=== PATIENT | male | born 1955 | race Caucasian/White ===

== ENCOUNTER 2019-02-28 05:15 | Day surgery (SDC) | payer OTHER ==
[~2019-02-28] VITALS: Ht 167.6 cm; Wt 67.9 kg
[~2019-02-28 05:15] MED LIST: BAYER CHEWABLE81 MG PO; CLARITIN 10 MG10 MG PO; DULCOLAX STOOL100 MG PO; HALDOL5 MG/ML IM; HYDROCHLOROTHIA25 MG PO; IBUPROFEN600 MG PO; MULTIPLE VITAMI1 TA1 PO; NIFEDIPINE ER30 MG PO; PRAVACHOL20 MG PO; PRILOSEC20 MG PO; RISPERDAL2 MG PO; VASOTEC5 MG PO; ZANTAC300 MG PO; ZOLOFT100 MG PO
[2019-02-28 06:19] LABS: BASOPHILS 0.4 % (0-2); EOSINOPHILS 2.5 % (0-7); HEMATOCRIT 35.9 % (42.0-54.0); HEMOGLOBIN 12.4 g/dL (13.5-17.5); IMMATURE GRANULOCYTES 0.6 % (0-5); LYMPHOCYTES 18.9 % (15-50); MCHC 34.5 g/dL (31.0-37.0); MCV 84.1 fL (80.0-100.0); MEAN PLATELET VOLUME 9.3 fL (7.4-10.4); MONOCYTES 9.4 % (2-11); NEUTROPHILS 68.2 % (40-80); RBC 4.27 10x6/uL (4.20-6.10); RDW 12.8 % (11.5-14.5); WBC 5.1 10x3/uL (4.8-10.8)
[2019-02-28 06:20] LABS: PLATELET COUNT 205 10x3/uL (130-400)
[2019-02-28 06:31] LABS: CALC OSMOLALITY 262 mosm/kg (275-300); CARBON DIOXIDE 32.3 mmol/L (21.0-32.0); CHLORIDE - SERUM 94 mmol/L (98-107); CREATININE - SERUM 0.5 mg/dL (0.6-1.3); GLUCOSE 84 mg/dL (74-106); SODIUM 133 mmol/L (136-145); UREA NITROGEN 8 mg/dL (7-18); eGFR NON AFRICAN AMERICAN > 90 mL/min (90-120)
[2019-02-28] MEDS ORDERED: BENZTROPINE MESY2 MG PO (06:39)
[2019-02-28] MEDS ORDERED: PROTONIX40 MG PO (06:40)
[2019-02-28] MEDS ORDERED: LOXAPINE25 MG PO (06:40)
[2019-02-28] MEDS ORDERED: DILTIAZEM 24HR240 M4 PO (06:40)
[2019-02-28] MEDS ORDERED: ULTRAM50 MG PO (06:40)
[2019-02-28] MEDS ORDERED: COZAAR50 MG PO (06:41)
[2019-02-28 06:49] VITALS: Ht 167.6 cm; Wt 67.9 kg
--- NOTE | 2019-02-28 06:55 | NUR ---
INFORMED RELOCATION COORDINATOR OF NEEDED BEHAVIORAL HEALTH NURSE FOR PT.
--- NOTE | 2019-02-28 08:10 | NUR ---
DR. ESPINAL NOTIFIED AND REVIEWED PT'S BEHAVIOR AND ASSESSMENT RESULTS. PT IS A LOW RISK PER DR. ESPINAL STATED TO GIVE RESOURCES TO PT AT TIME OF DISCHARGE. NO FURTHER ORDERS AT THIS TIME. RESOURCES REVIEWED WITH PT AND HE VERBALIZED UNDERSTANDING.
--- NOTE | 2019-02-28 10:04 | NUR ---
DC INSTRUCTIONS GIVEN TO PT. STATES UNDERSTANDING. DC'D IV CATH FULLY INTACT.
--- NOTE | 2019-02-28 10:16 | NUR ---
PT LEFT UNIT VIA WC AT 1011
--- NOTE | 2019-02-28 12:07 | OP ---
PATIENT NAME: ARACELIS BRADSHAW MEDICAL RECORD: [id number] :57 LOCATION:D.OPS ADMISSION DATE: SURGEON: EMELI KRAFT MD DATE OF OPERATION: 02/28/2019 PREOPERATIVE DIAGNOSES: 1. Dysphagia. 2. History of Pérez's, in need of surveillance endoscopy. 3. Esophageal stricture. POSTOPERATIVE DIAGNOSES: 1. Dysphagia. 2. History of Pérez's, in need of surveillance endoscopy. 3. Esophageal stricture. 4. Large sliding hiatal hernia. PROCEDURES: 1. Esophagogastroduodenoscopy with antral and distal esophageal biopsies. 2. Esophageal dilation to 60-Turkish with a prhaeko-pgz-cnejpeao balloon. SURGEON: Emeli Kraft MD HEALTH TECHNICAL WRITER: None. BLOOD LOSS: Minimal. ANESTHESIA: Local. COMPLICATIONS: None. The risks, possible complications and alternatives of the procedure were explained to the patient. He elects to proceed. The discussion specifically included, but was not limited to, bleeding requiring emergency reoperation, infection, endoscopic perforation. DESCRIPTION OF PROCEDURE: The patient was conveyed to the endoscopy suite electively on 02/28/2019. IV sedation was induced by the anesthesia staff. A bite block was inserted. A gastroscope was inserted into the mouth. It was advanced easily into the hypopharynx. The esophagus was easily intubated as were the stomach and duodenum. Upon withdrawal, retroflexed and angulus views were obtained. Antral biopsies were obtained. I then withdrew into the cardia of the stomach. I inflated the qcsvlim-gjx-jevylkqb balloon to 60-Turkish. I sequentially dilated the entire length of the esophagus to 60-Turkish. The gastroscope and oyhaznr-yab-uupzhwyf balloon were then withdrawn. Hkzqqkt-ube-dppscmym balloon was then removed. I re-endoscoped the patient's esophagus and stomach. There had been no evidence of false passage or perforation. Cold endoscopic biopsies were obtained in the distal esophagus due to history of Pérez esophagus. The endoscope was then withdrawn under direct vision. There is no need for the patient to follow up with me in the office unless he develops a complication related to this operative procedure. He will need to undergo another surveillance upper endoscopy with biopsies in 2 years. That OPERATIVE REPORT [id number] ARACELIS BRADSHAW would be in February of 2021. TRANSINT:[id number] Voice Confirmation ID: [id number] DOCUMENT ID: [id number] EMELI KRAFT MD at 1207 CC: ALFONSO CASAS MD and JULIO C GOMEZ [phone] DICTATION DATE: 02/28/1934 PUBLIC RELATIONS PLAYER: 02/28/19 [address] [facility] 02/28/19 [facility] [address] [place] [address]
--- NOTE | 2019-02-28 12:07 | HP ---
PATIENT: ARACELIS BRADSHAW MEDICAL RECORD: [id number] ACCOUNT: [id number] LOCATION:[facility] : 57 ADMISSION DATE: 02/28/19 PCP: No PCP HISTORY AND PHYSICAL EXAMINATION HISTORY OF PRESENT ILLNESS: The patient has dysphagia. Reportedly, he has esophageal stricture. He is being done here at the hospital because we do not have balloon dilators at the residential when we perform upper endoscopy. The patient has a history of Pérez's esophagus. He is here to undergo surveillance upper endoscopy. He has undergone esophageal dilations in the past. He has had reflux. No hematemesis. He states he has no history of hepatitis C or HIV. ALF MEDICATIONS: Please see the nursing list. ALLERGIES: No known drug allergies. SOCIAL HISTORY: Nonsmoker. PAST MEDICAL AND SURGICAL HISTORY: Questionable cardiac rhythm problems, hypertension, gastroesophageal reflux, arthritis. PHYSICAL EXAMINATION: GENERAL: The patient does not appear acutely ill. He does appear chronically ill. VITAL SIGNS: Reviewed. EARS: External ears appear normal. EYES: Extraocular movements are intact. NECK: Trachea is midline. CHEST: No intercostal retractions. PULMONARY: Nonlabored, no stridor. ABDOMEN: No peritonitis with movement. IMPRESSION: 1. Esophageal stricture. 2. Dysphagia. PLAN: EGD with esophageal dilation. TRANSINT:[id number] Voice Confirmation ID: [id number] DOCUMENT ID: [id number] EMELI KRAFT MD at 1207 CC: ALFONSO CASAS MD and JULIO C GOMEZ [phone] DICTATION DATE: 02/28/19905 TELEVISION WRITER: 02/28/19922 [facility] 02/28/19 [id number] [place] [address]
== END 2019-02-28 10:11 | disposition home or self-care (01) ==
LOC: D.OPS 05:15
PROVIDERS: Anesthesiology; ATTEND Surgery
DX: K22.2 Esophageal obstruction (principal); R13.10 Dysphagia, unspecified; K44.9 Diaphragmatic hernia without obstruction or gangrene